=== PATIENT | male | born 1935 | race Caucasian/White ===

== ENCOUNTER 2018-05-02 09:45 | Emergency (ER) | payer OTHER ==
[~2018-05-02] VITALS: Ht 167.6 cm; Wt 136.1 kg
[2018-05-02 10:17] LABS: Base Excess Venous 10.6 mmol/L; Bicarbonate Venous 32.8 mmol/L (24.0-30.0); PCO2 Venous 55.3 mmHg (38-42); PO2 Venous 115 mmHg (38-42); pH Blood Venous 7.41 (7.34-7.37)
[2018-05-02 10:23] LABS: BASOPHILS ABSOLUTE AUTO 0.03 K/mm3 (0.00-0.23); BASOPHILS PERCENT AUTO 1 % (0-2); EOSINOPHILS ABSOLUTE AUTO 0.13 K/mm3 (0.00-0.68); EOSINOPHILS PERCENT AUTO 2 % (0-6); Hematocrit 40.1 % (37.0-53.0); IMMATURE GRAN ABSOLUTE AUTO 0.05 K/mm3 (0.00-0.10); IMMATURE GRAN PERCENT AUTO 1 % (0-1); LYMPHOCYTES ABSOLUTE AUTO 0.72 K/mm3 (0.84-5.20); LYMPHOCYTES PERCENT AUTO 13 % (21-46); MONOCYTES ABSOLUTE AUTO 1.24 K/mm3 (0.16-1.47); MONOCYTES PERCENT AUTO 22 % (4-13); Mean Corpuscular HGB 31.7 pg (26.0-34.0); Mean Corpuscular HGB Conc 29.9 g/dL (31.5-36.5); Mean Corpuscular Volume 106 fL (80-100); Mean Platelet Volume 11.4 fL (9.1-12.4); NEUTROPHILS ABSOLUTE AUTO 3.55 K/mm3 (1.96-9.15); NEUTROPHILS PERCENT AUTO 62 % (41-73); Platelet Count 124 K/mm3 (150-400); RDW Coefficient Variation 16.7 % (11.7-14.2); Red Blood Cell Count 3.78 M/mm3 (4.30-5.90); White Blood Cell Count 5.72 K/mm3 (4.00-11.30)
[2018-05-02 10:31] LABS: Ethanol (Alcohol), Blood, Med <3 mg/dL
[2018-05-02 10:35] LABS: Alanine Aminotransfer (ALT/SGP 23 U/L (12-78); Albumin, Blood 3.2 g/dL (3.4-5.0); Albumin/Globulin Ratio 0.7 (0.8-1.8); Alk Phos 80 U/L (50-136); Anion Gap 5 mmol/L (6-16); Aspartate Aminotrans (AST/SGOT 29 U/L (12-37); Bilirubin, Total 1.2 mg/dL (0.1-1.0); Blood Urea Nitrogen 97 mg/dL (8-24); Bun/Creatinine Ratio 49.2 (12.0-20.0); CO2, Blood 37 mmol/L (21-32); Calcium, Blood 8.9 mg/dL (8.5-10.1); Chloride, Blood 97 mmol/L (98-108); Creatinine, Blood 1.97 mg/dL (0.60-1.20); Globulin, Blood 4.8 g/dL (2.2-4.0); Glomerular Filtration Rate 35 (60-); Glucose, Blood 37 mg/dL (70-99); Potassium, Blood 3.8 mmol/L (3.5-5.5); Sodium, Blood 139 mmol/L (136-145)
--- NOTE | 2018-05-02 15:12 | NUR ---
Initial Visit: Palliative Care Consult for goals of care. Spoke with Dr Sanchez and he reports the Pt's family inquired about hospice. Dr Sanchez reports that at this time he does not plan to have Pt admitted to the hospital. Pt is resting in bed upon arrival. Pt's Laya, and Pt's daughter Maty are present during visit. Pt is A&Ox2. He is able to answer month a year but unable to anwer where he is or reason for he is in the ED. Pt denies pain and anxiety at this time. He appears mildly anxious as evidenced by constant moving in the bed. Laya reports the Pt lives at home with her and their 3 adopted children. The oldest child is 18 and is helpful with assisting her with Pt's care. Laya reports the Pt has significantly declined over the last week but has been constantly confused since January. Laya reports the Pt will engaged in nonsensical and difficult to understand onversations. He requires assistance with bathing, dressing, ambulation, transfers, and occasionally with eating. Pt required the fire department to come assist with getting Pt back to bed twice last night after falling. Family also assisted with 2 falls back to bed as well for a total of 4 falls last night. Laya reports that she has changed her mind and does not want hospice to be considered but would like a hospital bed and assistance with care. Laya reports the Pt is 100% service connected. Laya is agreeable with ED group social worker to aid in obtaining [facility] bed [facility] Laya reports no other concerns at this time. Spoke with ED group social worker Ailyn and he is agreeable in assisting with obtaining a hospital bed and [facility]. ADL's 5/6 [place] 40% PPS 40% Plan is for ED group social worker to assist with obtaining assistance for care in the home and assist with obtaining hospital bed. Pt will be discharged from ED. Will remain available.
== END 2018-05-02 18:55 | disposition home or self-care (01) ==
LOC: ER 09:45
PROVIDERS: Emergency Medicine
DX: E11.649 Type 2 diabetes mellitus with hypoglycemia without coma (principal); G93.40 Encephalopathy, unspecified; Z79.4 Long term (current) use of insulin
CPT/HCPCS: 71045; 80053; 82803; 82947; 85025; 93005; 93010; 96361; 96374; 99285-25; G0480; J7042